=== PATIENT | female | born 1970 ===

== ENCOUNTER 2021-05-25 18:25 | Emergency (ER) | payer SELFPAY ==
[2021-05-25 19:07] VITALS: BP 124/79; PULSE 82; TEMP 99; BMI 30.9
[2021-05-27 09:07] LABS: SARS-CoV-2 NAA Not Detected (Not Detected)
== END 2021-05-25 20:02 | disposition home or self-care (01) ==
LOC: FER 18:25
DX: J06.9 Acute upper respiratory infection, unspecified (principal)
CPT/HCPCS: 87804; 99283-25; C9803; U0003; U0005

== ENCOUNTER 2022-04-30 18:21 | Emergency (ER) | payer SELFPAY ==
[2022-04-30 19:09] VITALS: BP 124/68; PULSE 58; RESP 18; TEMP 98.7; BMI 32.0
[2022-04-30] MEDS ORDERED: IBUPROFEN 600 MG TABLET (FP) PO ONE ×2 (20:20→20:23)
== END 2022-04-30 22:55 | disposition home or self-care (01) ==
LOC: JERFT 18:21 → JER 18:21 → JERFT 22:55
DX: M25.561 Pain in right knee (principal)
CPT/HCPCS: 73562-TC-RT-FY; 73590-TC-RT-FY; 99283-25